=== PATIENT | male | born 1960 | race Two or more races ===

== ENCOUNTER 2019-03-19 12:13 | Emergency (ER) | payer BC ==
[~2019-03-19] VITALS: Ht 170.2 cm; Wt 68.0 kg
[2019-03-19 12:13] VITALS: BP 133/70
--- NOTE | 2019-03-19 12:30 | Emergency Room Report ---
History of Present Illness General Chief Complaint: Vertigo Source: Patient Present Illness HPI Patient has history of severe Mnire's disease. Patient has taken meclizine in the past. Patient states that he was suggested to have surgery. However he did not obtain his surgery. He developed the onset of severe vertigo with diffuse spinning sensation. N intense nausea but no active vomiting. Allergies: Coded Allergies: No Known Allergies (Unverified , 03/19/19) Patient History Past Medical History: other Past Surgical History: none Pertinent Family History: none Social History: Denies: smoking, alcohol use, drug use Reviewed Nursing Documentation: PMH: Agreed; PSxH: Agreed Review of Systems All Other Systems: negative except mentioned in HPI Physical Exam Vital Signs Date Time Temp Pulse Resp B/P (MAP) Pulse Ox O2 Delivery O2 Flow Rate FiO2 03/19/19 11:59 97.7 60 16 153/81 (105) 98 Sp02 EP Interpretation: reviewed, normal General Appearance: alert, other - anxious Head: normocephalic, atraumatic Eyes: bilateral eye normal inspection ENT: normal ENT inspection, hearing grossly normal, normal voice Neck: normal inspection, full range of motion, supple Respiratory: normal inspection, lungs clear, normal breath sounds, no respiratory distress, no retraction, no wheezing Cardiovascular #1: regular rate, rhythm, no edema Gastrointestinal: normal inspection, normal bowel sounds, non tender, soft, no guarding, no hernia Genitourinary: no CVA tenderness Musculoskeletal: normal inspection, back normal, normal range of motion Neurologic: alert, responsive, speech normal, normal inspection, other - Vertiginous with movement of the head. Psychiatric: normal inspection, judgement/insight normal, mood/affect normal Skin: no rash Medical Decision Making Diagnostic Impression: Primary Impression: Vertigo ER Course Patient presents emergency department today with intense vertigo. Patient has history of vertigo. It was not improved by meclizine which is why patient called EMS was transferred here for further evaluation. On arrival patient appears a little weak with very vertiginous and is trying to stay still. Differential diagnosis include vertigo, otitis media, dizziness. Patient's exam is consistent with intense vertigo. Patient was given fluids Valium and Zofran with significant provement symptoms. Given patient feels better I feel the patient be discharged home. Patient is advised to follow up with primary doctor in 2-3 days and return the emergency room for any worsening symptoms and as needed. Last Vital Signs Date Time Temp Pulse Resp B/P (MAP) Pulse Ox O2 Delivery O2 Flow Rate FiO2 03/19/19 11:59 97.7 60 16 153/81 (105) 98 Status: improved Disposition: HOME, SELF-CARE Condition: Stable Dm Cazares MD Mar 19, 2019 12:30
[2019-03-19] MEDS ORDERED: VALIUM10 MG ORAL (14:26)
[2019-03-19 14:34] VITALS: BP 125/52
== END 2019-03-19 14:34 | disposition home or self-care (01) ==
LOC: EDBD 12:13 → EMR 12:50
DX: R42 Dizziness and giddiness (principal); H81.09 Meniere's disease, unspecified ear
CPT/HCPCS: 96361; 96374; 99284; J2405; J7030